=== PATIENT | female | born 1990 | race Caucasian/White ===

== ENCOUNTER 2019-05-14 14:13 | Outpatient (CLI) | payer OTHER ==
[2019-05-14] MEDS ORDERED: IOHEXOL 50 ML IV ONE (14:41)
== END 2019-05-14 21:05 | disposition home or self-care (01) ==
LOC: SRD 14:13
PROVIDERS: ATTEND Specialist
DX: N92.6 Irregular menstruation, unspecified (principal); N97.9 Female infertility, unspecified
CPT/HCPCS: 58340; 74740; Q9967